=== PATIENT | female | born 1960 | race Caucasian/White ===

== ENCOUNTER 2021-03-14 12:26 | Emergency (ER) | payer BC ==
[2021-03-14 12:39] VITALS: RESP 18; TEMP 98.1
--- NOTE | 2021-03-14 12:58 | ED ---
URI HPI - General Chief Complaint: Upper Respiratory Infection Stated Complaint: Covid+, wants antibodies Time Seen by Provider: 03/14/21 12:47 Source: patient, RN notes reviewed Mode of arrival: ambulatory Limitations: no limitations - History of Present Illness Initial Comments: 60-year-old female presents emergency from chief complaint of COVID-19 positive. Patient is here for monoclonal antibodies. Patient states she's had symptoms for 9 days. Patient states that she's had fever or chills denies cough congestion. No chest pain. Patient states that she has a history of breast cancer. - Related Data Allergies Allergy/AdvReac Type Severity Reaction Status Date / Time No Known Allergies Allergy Verified 03/14/21 12:39 Review of Systems ROS Statement: Those systems with pertinent positive or pertinent negative responses have been documented in the HPI. ROS Other: All systems not noted in ROS Statement are negative. Past Medical History Additional Past Medical History / Comment(s): CA stage 2 breast History of Any Multi-Drug Resistant Organisms: None Reported Past Surgical History: No Surgical Hx Reported Past Psychological History: No Psychological Hx Reported Smoking Status: Current every day smoker Past Alcohol Use History: Occasional Past Drug Use History: None Reported General Exam Limitations: no limitations General appearance: alert, in no apparent distress Head exam: Present: atraumatic, normocephalic, normal inspection Eye exam: Present: normal appearance, PERRL, EOMI. Absent: scleral icterus, c onjunctival injection, periorbital swelling ENT exam: Present: normal exam, normal oropharynx, mucous membranes moist Neck exam: Present: normal inspection, full ROM. Absent: tenderness, meningismus, lymphadenopathy Respiratory exam: Present: normal lung sounds bilaterally. Absent: respiratory distress, wheezes, rales, rhonchi, stridor Cardiovascular Exam: Present: regular rate, normal rhythm, normal heart sounds. Absent: systolic murmur, diastolic murmur, rubs, gallop, clicks Course Vital Signs 03/14/21 12:35 Temperature 98.1 F Pulse Rate 95 Respiratory 18 Rate Blood Pressure 117/76 O2 Sat by Pulse 99 Oximetry Medical Decision Making - Medical Decision Making Patient's vitals are stable she has had prior vaccination. Patient did receive monoclonal antibodies will be discharged in stable condition. Disposition Clinical Impression: COVID-19 Disposition: HOME SELF-CARE Condition: Stable Instructions (If sedation given, give patient instructions): Coronavirus Disease 2019 (COVID-19) Additional Instructions: Please return to the Emergency Department if symptoms worsen or any other concerns. Is patient prescribed a controlled substance at d/c from ED?: No Referrals: Hardik Marrero MD [Primary Care Provider] - 1-2 days Time of Disposition: 12:58
[2021-03-14] MEDS ORDERED: SODIUM CHLORIDE 0.9% 50 ML IVPB ONE (13:00)
[2021-03-14] MEDS ORDERED: CASIRIVIMAB (REGN10933) (EUA) 600 MG, IMDEVIMAB (REGN10987) (EUA) 600 MG in SODIUM CHLO... IVPB ONE (13:30)
[2021-03-14 15:40] VITALS: BP 107/73; PULSE 86
== END 2021-03-14 15:30 | disposition home or self-care (01) ==
LOC: EC 12:26
DX: U07.1 COVID-19 (principal); F17.200 Nicotine dependence, unspecified, uncomplicated; Z85.3 Personal history of malignant neoplasm of breast
CPT/HCPCS: 99283; Q0243